=== PATIENT | female | born 1940 | race Two or more races ===

== ENCOUNTER 2020-02-07 11:42 | Emergency (ER) | payer OTHER ==
[~2020-02-07] VITALS: Ht 162.6 cm; Wt 55.3 kg
[2020-02-07] MEDS ORDERED: VASOTEC2.5 MG PO (11:53)
[2020-02-07] MEDS ORDERED: CLORAZEPATE D3.75 MG PO (16:05)
[2020-02-07] MEDS ORDERED: VISTARIL25 MG PO (16:05)
== END 2020-02-07 17:01 | disposition home or self-care (01) ==
LOC: ER 11:42
DX: R00.2 Palpitations (principal); F41.8 Other specified anxiety disorders